=== PATIENT | female | born 1990 | race African-American/Black ===

== ENCOUNTER 2018-10-30 09:24 | Emergency (ER) | payer MEDICAID, OTHER ==
[2018-10-30 09:37] VITALS: BP 147/83
--- NOTE | 2018-10-30 10:09 | ER Document Report ---
ED General - General Chief Complaint: Chest Pain Stated Complaint: CHEST PAIN/DIFFICULTY BREATHING Time Seen by Provider: 10/30/18 09:43 Mode of Arrival: Ambulatory Information source: Patient, [facility] Records Notes: This 28-year-old female patient gives a 4-day history of coughing, sharp sternal pain when she breathes and coughs. Yellow nasal discharge with sinus congestion, yellow productive cough. She also has noted a low-grade fever. She does have a past history of asthma. TRAVEL OUTSIDE OF THE [place] IN LAST 30 DAYS: No - Related Data Allergies/Adverse Reactions: No Known Allergies Allergy (Verified 07/31/15 18:22) Past Medical History - General Information source: Patient, [facility] Records - Social History Smoking Status: Never Smoker Cigarette use (# per day): No Chew tobacco use (# tins/day): No Frequency of alcohol use: Occasional Drug Abuse: None Lives with: Family Family History: Reviewed & Not Pertinent Patient has suicidal ideation: No Patient has homicidal ideation: No Pulmonary Medical History: Reports: Hx Asthma - No attacks in 5 yrs Traumatic Medical History: Reports: Hx Fractures - Fx Rt arm (no sx) Past Surgical History: Reports: Hx Section - x2, Hx Cholecystectomy - Immunizations Hx Diphtheria, Pertussis, Tetanus Vaccination: Yes - already received Review of Systems - Review of Systems Constitutional: No symptoms reported EENT: See HPI Cardiovascular: No symptoms reported Respiratory: No symptoms reported, See HPI Gastrointestinal: No symptoms reported Genitourinary: No symptoms reported Female Genitourinary: Last menstrual period - 10-03-18, patient reports she has not been sexually active in the past 6 months Musculoskeletal: No symptoms reported Skin: No symptoms reported Hematologic/Lymphatic: No symptoms reported Neurological/Psychological: No symptoms reported Physical Exam - Vital signs Vitals: Temp Pulse Resp BP Pulse Ox 100.1 F 101 H 16 147/83 H 99 10/30/18 09:37 10/30/18 09:37 10/30/18 09:37 10/30/18 09:37 10/30/18 09:37 Interpretation: Febrile - General General appearance: Appears well, Alert In distress: None - HEENT Head: Normocephalic, Atraumatic Eyes: Normal Pupils: PERRL Tympanic membrane: Normal Nasal: Other - Nasal and sinus congestion Pharynx: Normal Neck: Normal - Respiratory Respiratory status: No respiratory distress Breath sounds: Other - Harsh bronchitic cough with some rhonchi - Cardiovascular Rhythm: Regular Heart sounds: Normal auscultation Murmur: No - Abdominal Inspection: Normal - Back Back: Normal - Extremities General upper extremity: Normal inspection General lower extremity: Normal inspection - Neurological Neuro grossly intact: Yes - Psychological Associated symptoms: Normal affect, Normal mood - Skin Skin Temperature: Warm Skin Moisture: Dry Skin Color: Normal Course - Vital Signs Vital signs: Temp Pulse Resp BP Pulse Ox 100.1 F 101 H 16 147/83 H 99 10/30/18 09:37 10/30/18 09:37 10/30/18 09:37 10/30/18 09:37 10/30/18 09:37 Discharge - Discharge Clinical Impression: Bronchitis Sinusitis Qualifiers: Sinusitis location: unspecified location Chronicity: acute Recurrence: non- recurrent Qualified Code(s): J01.90 - Acute sinusitis, unspecified Condition: Stable Disposition: HOME, SELF-CARE Additional Instructions: Bronchitis You have acute bronchitis. This disease is an infection or inflammation of the air passageways in your lungs. Symptoms usually include cough, low grade fever, shortness of breath, and wheezing. The cough usually persists for a couple of weeks. Most cases of bronchitis get better without antibiotics. We prescribe antibiotics when we believe bacteria are damaging your airways, or if there's high risk the bronchitis will worsen into pneumonia. Increase your fluid intake. A cool mist humidifier may make your lungs more comfortable. An expectorant (cough medicine that loosens phlegm) can help. If you smoke, STOP!!! Recovery from bronchitis can be somewhat slow, but you should see improvement within a day or two. Repeated episodes of bronchitis may result in lung damage -- for example, chronic bronchitis, recurrent pneumonias, or emphysema. Call the doctor if you develop increasing fever, shortness of breath, chest pain, bloody sputum, or otherwise worsen. If you have not improved at all after several days, contact the physician. Sinusitis You have sinusitis, an infection of the sinus cavities of the face. The sinuses are air-filled chambers which open into the inside of the nose. Bacteria and pus fill a sinus, causing pain, drainage, and fever. Sinusitis is treated with antibiotics. Often, expectorants (to thin the sinus mucous) or decongestants (to reduce swelling) are prescribed as well. Healing requires seven to 10 days. Avoid chemical fumes, pollens, dusts, and smoke (especially cigarette smoke). Keep the air humidified in your bedroom and work area and take plenty of liquids by mouth. This condition can be serious if the infection spreads. If your symptoms worsen, or if you develop severe headache, high fever, stiff neck, or a rash, you must call the doctor or return for re-evaluation. Take medications as prescribed. Try [id number] cough, cold, sinus congestion take medications. Pay attention to the amount of acetaminophen in any of these [id number] combination medications so that you do not take more than 1000 mg of acetaminophen every 4 hours. You may also take ibuprofen for fever, aches and pains. Drink plenty of fluids and get plenty of rest. Follow-up with your primary care provider if not improving. RETURN TO THE EMERGENCY ROOM IF ANY NEW OR WORSENING SYMPTOMS. Prescriptions: Azithromycin [Zithromax 250 mg Tablet] 250 mg PO ASDIR PRN #6 tablet PRN Reason: Forms: Return to Work
--- NOTE | 2018-10-30 23:09 | EKG REPORT ---
SEVERITY:- NORMAL ECG - SINUS RHYTHM : Confirmed by: Zully Chambers 30-Oct-2018 23:08:02
== END 2018-10-30 10:12 | disposition home or self-care (01) ==
LOC: ER 09:24
DX: J40 Bronchitis, not specified as acute or chronic (principal); J01.90 Acute sinusitis, unspecified; R07.9 Chest pain, unspecified; R06.00 Dyspnea, unspecified; Z90.49 Acquired absence of other specified parts of digestive tract
CPT/HCPCS: 93005; 93010; 99284